=== PATIENT | male | born 1970 | race Caucasian/White ===

== ENCOUNTER 2017-02-11 18:51 | Day surgery (SDC) | payer OTHER ==
[~2017-02-11] VITALS: Ht 165.1 cm; Wt 96.2 kg
[~2017-02-11 18:51] MED LIST: DILAUDID2 M1 PO; ERYTHROMYCIN1 GM OPH; PERCOCET 5-3251 EACH PO; SIMVASTATIN20 M2 PO; TRICOR145 M1 PO; VASCEPA1 G1 PO
[2017-02-11 19:15] LABS: ABSOLUTE BASOPHIL COUNT 0 /CUMM (0.0-0.2); ABSOLUTE EOSINOPHIL COUNT 0.2 /CUMM (0.0-0.7); ABSOLUTE GRANULOCYTE CT 7.4 /CUMM (1.4-6.5); ABSOLUTE MONOCYTE COUNT 0.7 /CUMM (0.10-0.60); BASOPHIL % 0.2 % (0.0-2.0); EOSINOPHIL % 2.2 % (0-5); GRANULOCYTE % 65.4 % (42.2-75.2); HEMATOCRIT 43.6 % (42-52); MEAN CORPUSCULAR HGB 29.3 PG (27.0-31.0); MEAN CORPUSCULAR HGB CONC 33.3 G/DL (33.0-37.0); MEAN CORPUSCULAR VOLUME 87.9 FL (80.0-94.0); MEAN PLATELET VOLUME 9.7 FL (7.4-10.4); PLATELET COUNT 192 /CUMM (130-400); RBC DISTRIBUTION WIDTH 13.5 % (11.5-14.5); RED BLOOD CELL CT 4.96 /CUMM (4.70-6.10); WHITE BLOOD CELL COUNT 11.4 /CUMM (4.8-10.8)
--- NOTE | 2017-02-11 21:02 | ED GENERAL PEDIATRIC ---
History of Present Illness General Chief Complaint: Abdominal Pain/Flank Pain Stated Complaint: ABD PAIN Source: patient, old records Exam Limitations: no limitations Vital Signs & Intake/Output Vital Signs & Intake/Output Vital Signs Date Time Temp Pulse Resp B/P Pulse O2 O2 Flow FiO2 Ox Delivery Rate 02/11 2243 97.5 69 16 135/82 97 Room Air 02/11 1859 98.2 80 16 156/100 98 Room Air Room Air ED Intake and Output 02/12 0000 02/11 1200 Intake Total 1000 Output Total Balance 1000 Intake, IV 1000 Patient 212 lb Weight Allergies Coded Allergies: No Known Allergies (02/11/17) Reconcile Medications Fenofibrate Nanocrystallized (Tricor) 145 MG TABLET 1 TAB PO DAILY TRIGLYCERIDES (Reported) Icosapent Ethyl (Vascepa) 1 GM CAPSULE 2 CAP PO BID CHOLESTEROL (Reported) Oxycodone HCl/Acetaminophen (Percocet 5-325 MG Tablet) 5 MG-325 MG TABLET 1 TAB PO BID pain Simvastatin (Simvastatin*) 20 MG TABLET 1 TAB PO QPM HIGH CHOLESTROL Triage Note: PT TO TRIAGE FOR LUQ PAIN FOR 6 HOURS. DENIES FEVERS, BUT HAD CHILLS. DENIES NAUSEA. PT STATES PAINW WORSE AFTER EATING CHICKEN. Triage Nurses Notes Reviewed? yes HPI: Patient present with epigastric pain that radiates to his back that started earlier today. The pain is constant. The pain is 10 out of 10. No nausea or vomiting. No aggravating a Medicaid status. Similar symptoms in the past when he has had pancreatitis. 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 No Psychosocial History Who does the child live with? Spouse Services at Home: None Child's primary language? [place] Smoking Status (13 and up) Never Smoked ETOH Use: occasional use Illicit Drug Use: denies illicit drug use Family History Family History, If Any: FATHER (Hypercholesterolemia). BROTHER (Stroke in mid 40s). Hx Contributory? No (LUCIANO MAN,MECHELLE Pulido) Review of Systems Review of Systems Constitutional: Reports: no symptoms. EENTM: Reports: no symptoms. Respiratory: Reports: no symptoms. Cardiovascular: Reports: no symptoms. GI: Reports: see HPI, abdominal pain. Genitourinary: Reports: no symptoms. Musculoskeletal: Reports: no symptoms. Skin: Reports: no symptoms. Neurological/Psychological: Reports: no symptoms. Hematologic/Endocrine: Reports: no symptoms. Immunologic/Allergic: Reports: no symptoms. All Other Systems: Reviewed and Negative (LUCIANO MAN,MECHELLE Pulido) Physical Exam Physical Exam General Appearance: alert/attentive, moderate distress Head: atraumatic HEENT: PERRL Neck: normal inspection, non-tender, supple Respiratory: chest non-tender, lungs clear, normal breath sounds Cardiovascular: normal peripheral pulses, regular rate, rhythm Gastrointestinal: soft, tenderness (EPIGASTRIC), other (NO REBOUND OR GUARDING) Back: normal inspection, no CVA tenderness Extremities: no evidence of injury, normal range of motion, cap refill <2 sec Neurological/Psychiatric: alert, normal mood/affect, no motor deficits, no sensory deficits Skin: normal color, warm/dry Lymphatic: no adenopathy Core Measures Severe Sepsis Present: No Septic Shock Present: No (LUCIANO MAN,MECHELLE Pulido) Progress Differential Diagnosis: PANCREATITIS, CHOLECYSITITIS Plan of Care: Orders Procedure Date/time Status Place in observation 02/12 0132 Active Add-on Test (ER Only) 02/11 2351 Active LIPASE 02/11 1905 Complete TROPONIN LEVEL 02/11 1902 Complete COMPREHENSIVE METABOLIC PANEL 02/11 190 Complete CBC WITHOUT DIFFERENTIAL 02/11 190 Complete AMYLASE 02/11 190 Complete EKG 02/11 190 Active Laboratory Tests 02/11/17 1905: Anion Gap 8, Estimated GFR > 60, BUN/Creatinine Ratio 21.1, Glucose 85, Calcium 9.8, Total Bilirubin 0.5, AST 26, ALT 49, Alkaline Phosphatase 45, Troponin I < 0.01, Total Protein 7.6, Albumin 4.5, Globulin 3.1, Albumin/Globulin Ratio 1.5, Amylase 120 H, Lipase 1167 H, CBC w Diff NO MAN DIFF REQ, RBC 4.96, MCV 87.9, MCH 29.3, RDW 13.5, MPV 9.7, Gran % 65.4, Lymphocytes % 25.9, Monocytes % 6.3, Eosinophils % 2.2, Basophils % 0.2, Absolute Granulocytes 7.4 H, Absolute Lymphocytes 3.0, Absolute Monocytes 0.7 H, Absolute Eosinophils 0.2, Absolute Basophils 0, PUBS MCHC 33.3 Diagnostic Imaging: Viewed by Me: CT Scan. Discussed w/RAD: CT Scan. Radiology Impression: PATIENT: MECHELLE JOHNSON PRESENT AGE: 46 PATIENT ACCOUNT NO: [id number] : 68 LOCATION: [facility] ORDERING PHYSICIAN: MECHELLE WOLF MD SERVICE DATE: 02/11/17 EXAM TYPE: CAT - CT ABD & PELVIS W IV CONTRAST EXAMINATION: CT ABDOMEN AND PELVIS WITH CONTRAST CLINICAL INFORMATION: Pancreatitis. Cholecystitis. Epigastric abdominal pain. COMPARISON: CT scan of the abdomen and pelvis 01/19/2017. TECHNIQUE: Multidetector volumetric imaging was performed of the abdomen and pelvis before and after the IV administration of 95 mL of Optiray 320 intravenous contrast. Sagittal and coronal reformatted images were obtained on the technologist's workstation. DLP: 485.94 mGy-cm FINDINGS: LUNG BASES: There is minimal right basilar subsegmental atelectasis. No pleural or pericardial effusion. LIVER, GALLBLADDER, AND BILIARY TREE: The liver is normal in size, shape, and attenuation. A small ill-defined hypodense lesion is visualized within the right lobe of the liver adjacent to gallbladder fossa that remains unchanged when compared to the dynamic renal CT scan from 01/19/2017. The gallbladder is unremarkable with no evidence of radiopaque gallstones, gallbladder wall thickening, or obvious pericholecystic inflammatory changes. PANCREAS: Unremarkable. SPLEEN: Unremarkable. ADRENAL GLANDS: Unremarkable. KIDNEYS AND URETERS: The kidneys are normal in size, shape, and attenuation. No hydronephrosis, hydroureter, or calculi seen. No perinephric stranding. BLADDER: Unremarkable. GASTROINTESTINAL TRACT: The stomach and small bowel are normal. There are no pathologically enlarged mesenteric or retroperitoneal lymph nodes. No free intraperitoneal air or fluid. Scattered diverticula are visualized within the sigmoid colon. There is a appendicolith at the base of the cecum and the appendix is abnormally distended with a diameter measuring 1.0 cm. Subtle inflammatory changes are visualized within the adjacent mesenteric fat. ABDOMINAL WALL: There is a small fat-containing umbilical hernia. VASCULAR: The abdominal aorta and inferior vena cava are unremarkable. PELVIC VISCERA: Unremarkable. OSSEOUS STRUCTURES: There are no worrisome lytic or blastic osseous lesions. IMPRESSION: There are early changes of acute appendicitis. No evidence of perforation. DICTATED BY: LEIAS ARROYO MD DATE/TIME DICTATED: 02/11/172345 CASSANDRA DEVELOPER:SCOOTER DATE/TIME TRANSCRIBED:02/11/172345 CONFIDENTIAL, DO NOT COPY WITHOUT APPROPRIATE AUTHORIZATION. <Electronically signed in Other Vendor System> SIGNED BY: ELIAS ARROYO MD 02/12/17 0000 Initial ED EKG: NSR, no ST T wave changes Prior EKG: unchanged Hand-Off Endorsed To: VERA AMANDA MD Endorsed Time: 3 Pending: consult (SURGICAL) Comments: NO REFLIEF FROM IV MORPHINE. (MECHELLE WOLF MD) Departure Departure Disposition: STILL A PATIENT Condition: Stable Referrals: PEREZ MAN,RAFITA Duncan (PCP/Family) Departure Forms: Customer Survey General Discharge Information (MECHELLE WOLF MD) Departure Clinical Impression Primary Impression: Appendicitis Secondary Impressions: Pancreatitis, chronic Observation Note Spoke With: SILVA LAST MD Physician Advisor Notified: MECHELLE WOLF MD Place Patient In: Non-ED OBS Care Area Rationale for Observation: My rational for observation is as follows . pt with appendicitis on ct scan, now with rlq tenderness on exam. elevated lipase noted, but likely decreasing/stable from prior lipase of >31,000 (VERA AMANDA MD)
--- NOTE | 2017-02-12 | CT SCAN REPORT ---
EXAMINATION: CT ABDOMEN AND PELVIS WITH CONTRAST CLINICAL INFORMATION: Pancreatitis. Cholecystitis. Epigastric abdominal pain. COMPARISON: CT scan of the abdomen and pelvis 01/19/2017. TECHNIQUE: Multidetector volumetric imaging was performed of the abdomen and pelvis before and after the IV administration of 95 mL of Optiray 320 intravenous contrast. Sagittal and coronal reformatted images were obtained on the technologist's workstation. DLP: 485.94 mGy-cm FINDINGS: LUNG BASES: There is minimal right basilar subsegmental atelectasis. No pleural or pericardial effusion. LIVER, GALLBLADDER, AND BILIARY TREE: The liver is normal in size, shape, and attenuation. A small ill-defined hypodense lesion is visualized within the right lobe of the liver adjacent to gallbladder fossa that remains unchanged when compared to the dynamic renal CT scan from 01/19/2017. The gallbladder is unremarkable with no evidence of radiopaque gallstones, gallbladder wall thickening, or obvious pericholecystic inflammatory changes. PANCREAS: Unremarkable. SPLEEN: Unremarkable. ADRENAL GLANDS: Unremarkable. KIDNEYS AND URETERS: The kidneys are normal in size, shape, and attenuation. No hydronephrosis, hydroureter, or calculi seen. No perinephric stranding. BLADDER: Unremarkable. GASTROINTESTINAL TRACT: The stomach and small bowel are normal. There are no pathologically enlarged mesenteric or retroperitoneal lymph nodes. No free intraperitoneal air or fluid. Scattered diverticula are visualized within the sigmoid colon. There is a appendicolith at the base of the cecum and the appendix is abnormally distended with a diameter measuring 1.0 cm. Subtle inflammatory changes are visualized within the adjacent mesenteric fat. ABDOMINAL WALL: There is a small fat-containing umbilical hernia. VASCULAR: The abdominal aorta and inferior vena cava are unremarkable. PELVIC VISCERA: Unremarkable. OSSEOUS STRUCTURES: There are no worrisome lytic or blastic osseous lesions. IMPRESSION: There are early changes of acute appendicitis. No evidence of perforation.
--- NOTE | 2017-02-12 02:54 | History & Physical Pre-Op ---
BARBRA LANIER 02/12/17 0238: General Information and HPI MD Statement: I have seen and personally examined MECHELLE JOHNSON and documented this H&P. The patient is a 46 year old M who presented with a patient stated chief complaint of abdominal pain. Source of Information: patient, old records Exam Limitations: no limitations History of Present Illness: Patient is a 46-year-old male with past medical history significant recurrent pancreatitis due to severe hypertriglyceridemia. His most recent admission was about 3 minutes ago for this reason. He presented to the ED last night with complaints of acute onset of supraumbilical abdominal pain that started at about 12 PM, after eating baked chicken for lunch. Patient states that the pain became progressively worse throughout the day, which prompted his visit to the ED.. He eventually experienced some nausea and dizziness, along with one episode of emesis in the ED. He admits to being constipated recently, although there was a small BM prior to admission. Otherwise denies fever, chills, headache, dizziness, chest pain, shortness of breath, cough, palpitations, diarrhea, dysuria. CT scan performed in the ED reveals acute appendicitis. Allergies/Medications Allergies: Coded Allergies: No Known Allergies (02/11/17) Home Med list Fenofibrate Nanocrystallized (Tricor) 145 MG TABLET 1 TAB PO DAILY TRIGLYCERIDES (Reported) Icosapent Ethyl (Vascepa) 1 GM CAPSULE 2 CAP PO BID CHOLESTEROL (Reported) Oxycodone HCl/Acetaminophen (Percocet 5-325 MG Tablet) 5 MG-325 MG TABLET 1 TAB PO BID pain Simvastatin (Simvastatin*) 20 MG TABLET 1 TAB PO QPM HIGH CHOLESTROL Past History Medical History Neurological: NONE EENT: NONE Cardiovascular: hyperlipidemia, HIGH TRIGLYCERIDES Respiratory: NONE Gastrointestinal: pancreatitis Hepatic: NONE Renal: NONE Musculoskeletal: NONE Psychiatric: NONE Endocrine: NONE Blood Disorders: NONE Cancer(s): NONE 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 BROTHER (Stroke in mid 40s). Psychosocial History Who Do You Live With? spouse, child Services at Home None Primary Language: Swazi Smoking Status: Current Everyday Smoker ETOH Use: occasional use (quit recently) Functional Ability ADLs Independent: dressing, eating, toileting, bathing. Ambulation: independent IADLs Independent: shopping, housework, finances, food prep, telephone, transportation , medication admin. 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 Negative for fever, chills, headache, dizziness, chest pain, shortness of breath , cough, palpitations, diarrhea, dysuri Exam & Diagnostic Data Last 24 Hrs of Vital Signs/I&O Vital Signs Date Time Temp Pulse Resp B/P Pulse O2 O2 Flow FiO2 Ox Delivery Rate 02/11 2243 97.5 69 16 135/82 97 Room Air 02/11 1859 98.2 80 16 156/100 98 Room Air Room Air Intake & Output 02/12 0800 02/12 0000 02/11 1600 Intake Total 1000 Output Total Balance 1000 Intake, IV 1000 Patient 212 lb Weight Physical Exam: Gen.: Patient is awake and alert. No acute distress. Cardiac: Regular rate and rhythm. Pulmonary: Lungs are clear bilaterally. No wheezes, rales, or rhonchi are appreciated. Abdomen: Soft and mildly distended. There is some tenderness in the supraumbilical area, as well as focal tenderness in the right lower quadrant with some guarding. No rebound tenderness is appreciated. Negative psoas and negative obturator signs. Hypoactive bowel sounds are heard. No surgical scars are appreciated. There is a small umbilical hernia, which is tender, but seems to be reducible (exam limited due to pain.) Extremities: No significant edema or calf tenderness are appreciated. Last 24 Hrs of Labs/Vasiliy: Laboratory Tests 02/11/17 1905: Anion Gap 8, Estimated GFR > 60, BUN/Creatinine Ratio 21.1, Glucose 85, Calcium 9.8, Total Bilirubin 0.5, AST 26, ALT 49, Alkaline Phosphatase 45, Troponin I < 0.01, Total Protein 7.6, Albumin 4.5, Globulin 3.1, Albumin/Globulin Ratio 1.5, Amylase 120 H, Lipase 1167 H, CBC w Diff NO MAN DIFF REQ, RBC 4.96, MCV 87.9, MCH 29.3, RDW 13.5, MPV 9.7, Gran % 65.4, Lymphocytes % 25.9, Monocytes % 6.3, Eosinophils % 2.2, Basophils % 0.2, Absolute Granulocytes 7.4 H, Absolute Lymphocytes 3.0, Absolute Monocytes 0.7 H, Absolute Eosinophils 0.2, Absolute Basophils 0, PUBS MCHC 33.[address] Other Results CT scan of abdomen and pelvis revealed: There are early changes of acute appendicitis. No evidence of perforation. Appendix is dilated to 1 cm. Assessment/Plan Assessment/Plan: Patient is a 46-year-old male with a past medical history significant for recurrent pancreatitis due to severe triglyceridemia, who presents with abdominal pain due to early acute appendicitis. Although there is an elevated lipase, this is likely still trending down since his most recent bout of pancreatitis back in October when his lipase was over 31,000. Plan: -Patient will need to go to the OR for laparoscopic appendectomy. -Nothing by mouth, IV fluids. -IV Unasyn 3 g 1. -Pain control with IV Dilaudid as needed. -If patient is stable postoperatively, he can be discharged home per his request. -Dr. Last is aware and he and the patient both agree with the plan. As Ranked By This Provider Problem List: 1. Appendicitis SILVA LAST MD 02/12/17 0314: Attending MD Review Statement Attending Statement Attending MD Statement: examined this patient, discuss w/resident/PA/EDUCATION DEAN, agreed w/resident/PA/EDUCATION DEAN, reviewed images Attending Assessment/Plan: Relatively healthy 46-year-old male presents with progressive abdominal pain in keeping with acute appendicitis. He now has all right lower quadrant peritonitis. CT scan confirms the diagnosis of early acute appendicitis secondary to fecalith. Plan is to give him broad-spectrum antibiotics and prompt laparoscopic appendectomy. He is informed of the risks of the operation including bleeding infection and agrees to proceed.
[2017-02-12 03:33] LABS: PT 11.4 SEC (9.4-12.5); PTT 31 SEC (25-37)
[2017-02-12 04:08] VITALS: BP 130/68
--- NOTE | 2017-02-12 06:56 | Operative Report ---
Operative/Inv Procedure Report Surgery Date: 02/12/17 Name of Procedure: Laparoscopic appendectomy Pre-Operative Diagnosis: Acute appendicitis Post-Operative Diagnosis: Same Estimated Blood Loss: scant Surgeon/Delivery Driver Assistant: Rohit Mclaughlin M.D./Anastacio BANUELOS Anesthesia: general endotracheal tube Specimens: Appendix Operative/Procedure Note Note: After consent patient is brought to the operating room and laid supine. General anesthesia was obtained his abdomen was prepped and draped. Skin above the umbilicus was after local anesthesia a curvilinear incision made sharply. We dissected through subcutaneous tissues tissues bluntly and identified the fascia. It was grasped with Edmonson's and a fasciotomy created sharply. The peritoneum was entered sharply and a blunt Stewart port was placed. Pneumoperitoneum was achieved. 2, 5 mm ports were placed in the suprapubic region and left lower quadrant, after local anesthesia was instilled and under direct vision the camera. Patient placed in Trendelenburg and rotated towards the left. The abdomen was explored. The appendix was identified in the right lower quadrant. It was gangrenous throughout its course but not perforated. There was scant turbid peritoneal fluid. Appendix grasped in the mesentery to avoid injury to the wall. A window in the mesentery near the base was developed with a [place] dissector. The mesentery was divided with Endo MIKE Elkins load. The base was divided with a reload. Appendix placed in Endo Catch bag and cinched up. The right lower quadrant and pelvis were then irrigated with normal saline. Hemostasis was adequate. Ports then removed and appendix delivered and passed off the field. The fascia was closed 0 Vicryl suture. Skin incisions closed with 4-0 Vicryl. Steri-Strips and sterile dressing applied. Sponge and needle counts are correct CC: PEREZ MAN,RAFITA Duncan
== END 2017-02-12 ==
LOC: ERH 18:51 → STS 02-12 06:00 → ERH 02-12 08:50
PROVIDERS: Emergency Medicine
DX: K35.80 Unspecified acute appendicitis (principal); E78.4 Other hyperlipidemia; F17.200 Nicotine dependence, unspecified, uncomplicated
CPT/HCPCS: 74177; 88304; 93005; 93010; 96361; 96374; 96375; 96376; J0131; J1100; J2250; J2405; J3010

== ENCOUNTER 2018-04-21 04:32 | Inpatient (IN) | payer OTHER ==
[~2018-04-21] VITALS: Ht 162.6 cm; Wt 103.4 kg
--- NOTE | 2018-04-21 04:52 | ED GI/GU/ABDOMINAL COMPLAINT ---
History of Present Illness General Chief Complaint: Abdominal Pain/Flank Pain Stated Complaint: C/C ABD PAIN HX PANCREATITIS Source: patient Exam Limitations: no limitations Vital Signs & Intake/Output Vital Signs & Intake/Output Vital Signs Date Time Temp Pulse Resp B/P B/P Pulse O2 O2 Flow FiO2 Mean Ox Delivery Rate 04/21 0447 98.2 83 18 157/100 98 Room Air Allergies Coded Allergies: No Known Allergies (02/11/17) Reconcile Medications Fenofibrate Nanocrystallized (Tricor) 145 MG TABLET 1 TAB PO DAILY TRIGLYCERIDES (Reported) Icosapent Ethyl (Vascepa) 1 GM CAPSULE 2 CAP PO BID CHOLESTEROL (Reported) Oxycodone HCl/Acetaminophen (Percocet 5-325 MG Tablet) 5 MG-325 MG TABLET 1 TAB PO BID pain Simvastatin (Simvastatin*) 20 MG TABLET 1 TAB PO QPM HIGH CHOLESTROL Triage Nurses Notes Reviewed? yes Onset: Gradual Duration: hour(s):, waxing and waning Timing: recent history Quality/Severity: burning, cramping Location: epigastric Radiation: no radiation Activities at Onset: none Prior Abdominal Problems: similar symptoms Modifying Factors: Worsens With: palpation. Associated Symptoms: abdominal pain HPI: 47 YO GENTLEMAN H/O pancreatitis Presents with midepigastric abdominal pain that began yesterday at approximately 4 PM. He feels discomfort similar to his prior episodes of pancreatitis. He notes burning midepigastric tenderness occasional nausea, decreased oral intake. He has no fever chills diarrhea chest pain shortness of breath. Past History Travel History Traveled to [place] past 21 day No Medical History Any Pertinent Medical History? 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 BROTHER (Stroke in mid 40s). Hx Contributory? No Review of Systems Review of Systems Constitutional: Reports: no symptoms. EENTM: Reports: no symptoms. Respiratory: Reports: no symptoms. Cardiovascular: Reports: no symptoms. GI: Reports: no symptoms. Genitourinary: Reports: no symptoms. Musculoskeletal: Reports: no symptoms. Skin: Reports: no symptoms. Neurological/Psychological: Reports: no symptoms. Hematologic/Endocrine: Reports: no symptoms. Immunologic/Allergic: Reports: no symptoms. All Other Systems: Reviewed and Negative Physical Exam Physical Exam Gastrointestinal: MILD TO MODERATE MIDEPIGASTRIC TENDERNESS TO PALPATION. wITHOUT REBOUND OR GUARDING Comments: Review of Systems - except as otherwise noted in HPI d and Negative Physical Exam Physical Exam General Appearance: well developed/nourished, no apparent distress Head: atraumatic, normal appearance Eyes: Bilateral: normal appearance. Ears, Nose, Throat: normal pharynx, normal ENT inspection Neck: normal inspection, supple, full range of motion Respiratory: normal breath sounds, chest non-tender, no respiratory distress, quiet respiration, lungs clear Cardiovascular: regular rate/rhythm Gastrointestinal: Mild to mid epigastric tenderness to palpation. Without a Barbosa's sign, rebound or guarding. Back: normal inspection, normal range of motion Extremities: normal inspection, normal capillary refill, normal range of motion, no edema Neurologic/Psych: no motor/sensory deficits, awake, alert, oriented x 3 Skin: intact, normal color, warm/dry Core Measures ACS in differential dx? No Sepsis Present: No Sepsis Focused Exam Completed? No Progress Differential Diagnosis: colon cancer, cholecystitis, diverticulitis, gastritis, hepatitis Plan of Care: Orders Procedure Date/time Status Nothing by Mouth 04/21 B Active Saline Lock 04/21 651 Active Misc Message 04/21 651 Active ED Holding Orders 04/21 651 Active Admit to inpatient 04/21 0651 Active Vital Signs 04/21 0651 Active Code Status 04/21 0651 Active Add-on Test (ER Only) 04/21 0637 Active TRIGLYCERIDES 04/21 0540 Active ETHANOL 04/21 0500 Active TROPONIN LEVEL 04/21 0451 Active LIPASE 04/21 0451 Active HEPATIC FUNCTION PANEL 04/21 0451 Active CBC WITHOUT DIFFERENTIAL 04/21 0451 Complete BASIC METABOLIC PANEL 04/21 0451 Active AMYLASE 04/21 0451 Active EKG 04/21 0451 Active Current Medications Sig/Setph Start time Last Medication Dose Stop Time Status Admin Morphine Sulfate 4 MG ONCE ONE 04/21 700 UNVr (Morphine) 04/21 07 Sodium Chloride 1,000 ML BOLUS ONE 04/21 0700 UNVr (Normal Saline 0.9%) 04/21 0759 Laboratory Tests 04/21/18 0540: Anion Gap 8, Estimated GFR > 60, BUN/Creatinine Ratio 20.0, Glucose 96, Calcium 8.8, Total Bilirubin 0.4, Direct Bilirubin 0.2, AST 22, ALT 40, Alkaline Phosphatase 45, Troponin I < 0.01, Total Protein 6.4, Albumin 3.7, Triglycerides Pending, Amylase 453 H, Lipase 6858 H, CBC w Diff NO MAN DIFF REQ, RBC 4.52 L , MCV 87.9, MCH 30.2, MCHC 34.3, RDW 12.8, MPV 9.8, Gran % 66.9, Lymphocytes % 21.3, Monocytes % 9.1, Eosinophils % 2.4, Basophils % 0.3, Absolute Granulocytes 5.5, Absolute Lymphocytes 1.7, Absolute Monocytes 0.7 H, Absolute Eosinophils 0.2, Absolute Basophils 0, Serum Alcohol < 10.0 04/21/18 0500: Serum Alcohol Cancelled Diagnostic Imaging: Viewed by Me: Radiology Read, CT Scan. Discussed w/RAD: Radiology Read, CT Scan. Radiology Impression: PATIENT: MECHELLE JOHNSON PRESENT AGE: 47 PATIENT ACCOUNT NO: [id number] : 68 LOCATION: [facility] ORDERING PHYSICIAN: Chalo Mckinney MD SERVICE DATE: 04/21/18 EXAM TYPE: CAT - CT ABD & PELVIS W/O IV CONTRAS EXAMINATION: CT ABDOMEN AND PELVIS WITHOUT CONTRAST CLINICAL INFORMATION: Mid epigastric pain, history of pancreatitis COMPARISON: 02/11/2017 TECHNIQUE: Multidetector volumetric imaging was performed from the superior aspect of the liver through the pubic symphysis. Sagittal and coronal reformatted images were obtained on the technologist's workstation. DLP: 730.94 mGy-cm FINDINGS: LUNG BASES: The visualized lung bases are unremarkable. LIVER, GALLBLADDER, AND BILIARY TREE: The liver is normal in size, shape, and attenuation. No biliary ductal dilatation is present. The gallbladder is unremarkable with no evidence of radiopaque gallstones, gallbladder wall thickening, or obvious pericholecystic inflammatory changes. PANCREAS: There is mild stranding adjacent to the distal pancreas. No peripancreatic fluid collection. SPLEEN: Unremarkable. ADRENAL GLANDS: Unremarkable. KIDNEYS AND URETERS: The kidneys are normal in size, shape, and attenuation. No hydronephrosis, hydroureter, or calculi seen. No perinephric stranding. BLADDER: Unremarkable. GASTROINTESTINAL TRACT: No evidence of bowel obstruction or wall thickening. Patient is status post appendectomy. No free fluid or free air is seen. ABDOMINAL WALL: No significant hernia is appreciated. LYMPH NODES: Normal. VASCULAR: Unremarkable. PELVIC VISCERA: Unremarkable. OSSEOUS STRUCTURES: Diffuse idiopathic skeletal hyperostosis is noted in the lower thoracic spine. Endplate osteophytes are present in the lumbar spine most prominently at L3-L4. IMPRESSION: Mild stranding adjacent to the distal pancreas, consistent with pancreatitis. DICTATED BY: Celso Harmon MD DATE/TIME DICTATED:04/21/18600 PRODUCTION ASSEMBLER:SCOOTER DATE/TIME TRANSCRIBED:04/21/18600 CONFIDENTIAL, DO NOT COPY WITHOUT APPROPRIATE AUTHORIZATION. <Electronically signed in Other Vendor System> SIGNED BY: Celso Harmon MD 04/21/18 0611 Initial ED EKG: normal axis, normal intervals, normal p-waves, normal QRS complex, normal sinus rhythm Departure Departure Disposition: STILL A PATIENT Condition: Stable Clinical Impression Primary Impression: Abdominal pain Secondary Impressions: Pancreatitis Referrals: Tyler MAN,Guido Duncan (PCP/Family) Departure Forms: Customer Survey General Discharge Information Admission Note Spoke With: Bridgette MAN,Rafaela Goodwin Documentation of Exam: Documentation of any treatments & extenuating circumstances including Concerns Regarding Discharge (functional status, medication knowledge or non-compliance, living conditions, etc.) that warrant an admission rather than observation: Pt with pancreatitis, based on labs/ct scan/history and exam, merits bowel rest, parenteral pain meds, iv fluids.... likely etiology is lipids vs idiopathic vs etoh.
[2018-04-21 05:58] LABS: ABSOLUTE BASOPHIL COUNT 0 /CUMM (0.0-0.2); ABSOLUTE EOSINOPHIL COUNT 0.2 /CUMM (0.0-0.7); ABSOLUTE GRANULOCYTE CT 5.5 /CUMM (1.4-6.5); ABSOLUTE LYMPH COUNT 1.7 /CUMM (1.2-3.4); ABSOLUTE MONOCYTE COUNT 0.7 /CUMM (0.10-0.60); BASOPHIL % 0.3 % (0.0-2.0); EOSINOPHIL % 2.4 % (0-5); GRANULOCYTE % 66.9 % (42.2-75.2); HEMATOCRIT 39.7 % (42-52); MEAN CORPUSCULAR VOLUME 87.9 FL (80.0-94.0); MEAN PLATELET VOLUME 9.8 FL (7.4-10.4); PLATELET COUNT 155 /CUMM (130-400); RBC DISTRIBUTION WIDTH 12.8 % (11.5-14.5); RED BLOOD CELL CT 4.52 /CUMM (4.70-6.10); WHITE BLOOD CELL COUNT 8.2 /CUMM (4.8-10.8)
--- NOTE | 2018-04-21 06:11 | CT SCAN REPORT ---
EXAMINATION: CT ABDOMEN AND PELVIS WITHOUT CONTRAST CLINICAL INFORMATION: Mid epigastric pain, history of pancreatitis COMPARISON: 02/11/2017 TECHNIQUE: Multidetector volumetric imaging was performed from the superior aspect of the liver through the pubic symphysis. Sagittal and coronal reformatted images were obtained on the technologist's workstation. DLP: 730.94 mGy-cm FINDINGS: LUNG BASES: The visualized lung bases are unremarkable. LIVER, GALLBLADDER, AND BILIARY TREE: The liver is normal in size, shape, and attenuation. No biliary ductal dilatation is present. The gallbladder is unremarkable with no evidence of radiopaque gallstones, gallbladder wall thickening, or obvious pericholecystic inflammatory changes. PANCREAS: There is mild stranding adjacent to the distal pancreas. No peripancreatic fluid collection. SPLEEN: Unremarkable. ADRENAL GLANDS: Unremarkable. KIDNEYS AND URETERS: The kidneys are normal in size, shape, and attenuation. No hydronephrosis, hydroureter, or calculi seen. No perinephric stranding. BLADDER: Unremarkable. GASTROINTESTINAL TRACT: No evidence of bowel obstruction or wall thickening. Patient is status post appendectomy. No free fluid or free air is seen. ABDOMINAL WALL: No significant hernia is appreciated. LYMPH NODES: Normal. VASCULAR: Unremarkable. PELVIC VISCERA: Unremarkable. OSSEOUS STRUCTURES: Diffuse idiopathic skeletal hyperostosis is noted in the lower thoracic spine. Endplate osteophytes are present in the lumbar spine most prominently at L3-L4. IMPRESSION: Mild stranding adjacent to the distal pancreas, consistent with pancreatitis.
[2018-04-21 06:15] LABS: MEAN CORPUSCULAR HGB 30.2 PG (27.0-31.0)
[2018-04-21 06:16] LABS: MEAN CORPUSCULAR HGB CONC 34.3 G/DL (33.0-37.0)
[2018-04-21 08:42] VITALS: BP 130/90
--- NOTE | 2018-04-21 09:06 | History & Physical ---
Chaz Comer MD 04/21/18 0842: General Information and HPI History of Present Illness: 47 year old man with past medical history of recurrent pancreatitis, famililial hypertriglyceridema, and obesity seen for evaluation of epigastric pain. Patient reports being in his normal state of health when around 4PM the day prior to admission he developed some mild upper abdominal discomfort that felt like a "hunger pain". He ate a ham sandwich for lunch and yogurt with strawberries for breakfast. THe pain progressively worsening throughout the evening, eventually waking him from sleep for which he came to the [place] ED for concern on an episode of pancreatitis. Presently patient states his pain is a sharp 6/10 radiating straight through to his back. He reports adequate oral intake of food and water. He has not had any alcohol since thursday. He drinks on weekend nights averaging 6-8 beers. He is a current smoking smoking 1/2 - 1 ppd. He is compliant with his medications and denies any new meds. Review of Systems He otherwise denies any headache, fever, chills, chest pain, palpitations, heartburn, shortness of breath, cough, nausea, vomiting, diarrhea, constipation, or urinary symptoms. Allergies/Medications Allergies: Coded Allergies: No Known Allergies (02/11/17) Home Med list Fenofibrate Nanocrystallized (Tricor) 145 MG TABLET 1 TAB PO DAILY TRIGLYCERIDES (Reported) Icosapent Ethyl (Vascepa) 1 GM CAPSULE 2 CAP PO BID CHOLESTEROL (Reported) Past History Travel History Traveled to [place] past 21 day No Medical History Neurological: NONE EENT: NONE Cardiovascular: hyperlipidemia, HIGH TRIGLYCERIDES Respiratory: NONE Gastrointestinal: pancreatitis Hepatic: NONE Renal: NONE Musculoskeletal: NONE Psychiatric: NONE Endocrine: HYPERTRIGLYCERIDEMIA Blood Disorders: NONE Cancer(s): NONE PHARMACY MESSENGER/Reproductive: NONE History of MRSA: No History of VRE: No History of CDIFF: No Surgical History Surgical History: appendectomy, HANDS CARPAL TUNNEL trigger finger Past Family/Social History Family History Relations & Conditions if any FATHER (Hypercholesterolemia). BROTHER (Stroke in mid 40s). Psychosocial History Who Do You Live With? spouse, child Services at Home: None Primary Language: Bengali Smoking Status: Current Everyday Smoker ETOH Use: occasional use Illicit Drug Use: denies illicit drug use Functional Ability ADLs Independent: dressing, eating, toileting, bathing. Ambulation: independent IADLs Independent: shopping, housework, finances, food prep, telephone, transportation , medication admin. Review of Systems Review of Systems Constitutional: Reports: see HPI. Exam & Diagnostic Data Last 24 Hrs of Vital Signs/I&O Vital Signs Date Time Temp Pulse Resp B/P B/P Pulse O2 O2 Flow FiO2 Mean Ox Delivery Rate 04/21 0842 98.7 66 18 130/90 98 04/21 0729 78 15 137/83 98 Room Air Room Air 04/21 0447 98.2 83 18 157/100 98 Room Air Intake & Output 04/21 1600 04/21 0800 04/21 0000 Intake Total 0 Output Total Balance 0 Intake, Oral 0 Patient 103.419 kg Weight Physical Exam General Appearance Alert, Oriented X3, Cooperative, No Acute Distress Skin No Rashes, No Breakdown, No Significant Lesion Skin Temp/Moisture Exam: Warm/Dry Sepsis Skin Exam (color): Normal for Ethnicity HEENT Atraumatic, EOMI, Mucous Membr. moist/pink Neck Supple Cardiovascular Regular Rate, Normal S1, Normal S2 Lungs Clear to Auscultation, Normal Air Movement Abdomen Normal Bowel Sounds, Soft, No Hepatospenomegaly, No Masses, Mild epigastric tenderness Neurological Normal Gait, Normal Speech, Normal Tone, Sensation Intact, Cranial Nerves 3-12 NL Extremities No Edema, Normal Pulses Vascular Normal Pulses, Pulses Symmetrical Last 24 Hrs of Labs/Vasiliy: Laboratory Tests 04/21/18 0735: Urine Color YEL, Urine Clarity CLEAR, Urine pH 6.0, Ur Specific [place] 1.020, Urine Protein NEG, Urine Ketones NEG, Urine Nitrite NEG, Urine Bilirubin NEG, Urine Urobilinogen 0.2, Ur Leukocyte Esterase NEG, Ur Microscopic EXAM NOT REQUIRED, Urine Hemoglobin NEG, Urine Glucose NEG 04/21/18 0540: Anion Gap 8, Estimated GFR > 60, BUN/Creatinine Ratio 20.0, Glucose 96, Calcium 8.8, Total Bilirubin 0.4, Direct Bilirubin 0.2, AST 22, ALT 40, Alkaline Phosphatase 45, Troponin I < 0.01, Total Protein 6.4, Albumin 3.7, Triglycerides 2045 H, Amylase 453 H, Lipase 6858 H, CBC w Diff NO MAN DIFF REQ, RBC 4.52 L , MCV 87.9, MCH 30.2, MCHC 34.3, RDW 12.8, MPV 9.8, Gran % 66.9, Lymphocytes % 21.3, Monocytes % 9.1, Eosinophils % 2.4, Basophils % 0.3, Absolute Granulocytes 5.5, Absolute Lymphocytes 1.7, Absolute Monocytes 0.7 H, Absolute Eosinophils 0.2, Absolute Basophils 0, Serum Alcohol < 10.0 04/21/18 0500: Serum Alcohol Cancelled Assessment/Plan Assessment: 47-year-old man with multiple medical problems significant for recurrent pancreatitis and familial hypertriglyceridemia seen for evaluation of epigastric abdominal discomfort. Patient reports 6/10 mid-epigastric sharp abdominal pain radiating straight through to his back. Vital signs are significant only for an elevated blood pressure of 157/100. Physical exam demonstrates a soft, mildly tender epigastrum without guarding or rigidity. Labs demonstrate a lipiase of 6858, amylase 454, and triglyceride 2045; EtOH CBC and Chemistry unremarkable. CXR was not obtained. CT abdomen/pelvis demonstrates findings consistent with pancreatitis. Clinicallly patient appears to have acute uncomplicated recurrent pancreatitis most likely secondary to his markedly elevated triglycerides. He is reported followed by electric spot welder / "cholesterol expert" (per patient) Dr. Mercado and is compliant with his fenofibrate and Vascepa. Patient is to be kept nothing by mouth with diet advanced as tolerated and admitted to general medicine. He will be given addressive intravenous fluids and dilaudid / zofran for pain / nausea relief. Problem List -Acute pancreatitis, likely due to hypertriglyceridemia -Familial hyperglyceridemia, on Fenofibrate / Vascepa -Obesity Plan -Admit to general medicine -LR @ 150 mL/hr -Continue home meds: Fenofibrate, Vascepa -Dilaudid PRN for pain control -Zofran PRN for nausea -Endocrinology consult for evaluation of hypertriglyceridemia -Obtain chest x-ray -NPO -DVT PPx with subcutaneous heparin -FULL CODE As Ranked By This Provider Problem List: 1. Pancreatitis Core Measures/Misc (08/02) Acute Coronary Syndrome ACS Diagnosis: No Congestive Heart Failure Congestive Heart Failure Diagnosis No Cerebrovascular Accident CVA/TIA Diagnosis: No VTE (View Protocol) VTE Risk Factors Age>40 No Mechanical VTE Prophylaxis d/t N/A MechProphylax Ordered No VTE Pharm Prophylaxis d/t NA PharmProphylax ordered Sepsis (View protocol) Sepsis Present: No If YES complete Sepsis Event Note If YES complete Sepsis Event Note Enzo MAN,Kiersten 04/21/18 1217: Core Measures/Misc (08/02) Sepsis (View protocol) If YES complete Sepsis Event Note If YES complete Sepsis Event Note Attending MD Review Statement Attending Statement Attending MD Statement: examined this patient, discuss w/resident/PA/PRE CERTIFICATION SPECIALIST, agreed w/resident/PA/PRE CERTIFICATION SPECIALIST, reviewed EMR data (avail), discussed with nursing, discussed with case mgmt, reviewed images, amended to note Attending Assessment/Plan: 47-year-old male with past medical history significant for recurrent pancreatitis, hypertriglyceridemia, obesity who is presenting with epigastric pain. Pain started last evening. Gradually got worse over the course of the night. Patient has had similar episodes in the past. He does have history of hypertriglyceridemia and he has been taking fenofibrate as well as Vascepa. He does admit to not very compliant with his low-fat low-carb diet. He did eat fast food and he has been taking yolks in his scrambled eggs. Yesterday he ate ham sandwich with some mayonnaise. He described the pain as sharp, severe intensity prior to coming into the hospital and it was going into his back. He denies any nausea vomiting. He admits to having appetite. Vital Signs Date Time Temp Pulse Resp B/P B/P Pulse O2 O2 Flow FiO2 Mean Ox Delivery Rate 04/21 0842 98.7 66 18 130/90 98 04/21 0729 78 15 137/83 98 Room Air Room Air 04/21 0447 98.2 83 18 157/100 98 Room Air on exam; aox3, nad. cv; s1,s2, rrr resp; clear abd; soft, tender in epigastrium, bs+ ext; no edema Laboratory Tests 04/21 04/21 0735 0540 Chemistry Sodium (137 - 145 mmol/L) 139 Potassium (3.5 - 5.1 mmol/L) 4.2 Chloride (98 - 107 mmol/L) 106 Carbon Dioxide (22 - 30 mmol/L) 25 Anion Gap (5 - 16) 8 BUN (9 - 20 mg/dL) 16 Creatinine (0.7 - 1.2 mg/dL) 0.8 Estimated GFR (>60 ml/min) > 60 BUN/Creatinine Ratio (7 - 25 %) 20.0 Glucose (65 - 99 mg/dL) 96 Calcium (8.4 - 10.2 mg/dL) 8.8 Total Bilirubin (0.2 - 1.3 mg/dL) 0.4 Direct Bilirubin (< 0.4 mg/dL) 0.2 AST (17 - 59 U/L) 22 ALT (21 - 72 U/L) 40 Alkaline Phosphatase (< 127 U/L) 45 Troponin I (<0.11 ng/ml) < 0.01 Total Protein (6.3 - 8.2 g/dL) 6.4 Albumin (3.5 - 5.0 g/dL) 3.7 Triglycerides (<150 mg/dL) 2045 H Amylase (30 - 110 U/L) 453 H Lipase (23 - 300 U/L) 6858 H Hematology CBC w Diff NO MAN DIFF REQ WBC (4.8 - 10.8 /CUMM) 8.2 RBC (4.70 - 6.10 /CUMM) 4.52 L Hgb (14.0 - 18.0 G/DL) 13.3 L Hct (42 - 52 %) 39.7 L MCV (80.0 - 94.0 FL) 87.9 MCH (27.0 - 31.0 PG) 30.2 MCHC (33.0 - 37.0 G/DL) 34.3 RDW (11.5 - 14.5 %) 12.8 Plt Count (130 - 400 /CUMM) 155 MPV (7.4 - 10.4 FL) 9.8 Gran % (42.2 - 75.2 %) 66.9 Lymphocytes % (20.5 - 51.1 %) 21.3 Monocytes % (1.7 - 9.3 %) 9.1 Eosinophils % (0 - 5 %) 2.4 Basophils % (0.0 - 2.0 %) 0.3 Absolute Granulocytes (1.4 - 6.5 /CUMM) 5.5 Absolute Lymphocytes (1.2 - 3.4 /CUMM) 1.7 Absolute Monocytes (0.10 - 0.60 /CUMM) 0.7 H Absolute Eosinophils (0.0 - 0.7 /CUMM) 0.2 Absolute Basophils (0.0 - 0.2 /CUMM) 0 Toxicology Serum Alcohol (<10 MG/DL) < 10.0 Urines Urine Color (YEL,AMB,STR) YEL Urine Clarity (CLEAR) CLEAR Urine pH (5.0 - 8.0) 6.0 Ur Specific [place] (1.001 - 1.035) 1.020 Urine Protein (NEG,<30 MG/DL) NEG Urine Ketones (NEG) NEG Urine Nitrite (NEG) NEG Urine Bilirubin (NEG) NEG Urine Urobilinogen (0.1 - 1.0 EU/dl) 0.2 Ur Leukocyte Esterase (NEG) NEG Ur Microscopic EXAM NOT REQUIRED Urine Hemoglobin (NEG) NEG Urine Glucose (N MG/DL) NEG 04/21 0500 Toxicology Serum Alcohol Cancelled CT abd/pelvis: IMPRESSION: Mild stranding adjacent to the distal pancreas, consistent with pancreatitis. A/P; 47-year-old male with past medical history significant for recurrent pancreatitis, hypertriglyceridemia, obesity admitted with epigastric pain secondary to acute pancreatitis. Patient admitted to medicine floor. He will be kept nothing by mouth. He will be hydrated with IV fluids. Symptomatically treatment for nausea vomiting with antiemetics and analgesics. He does have high triglyceride levels. He will be continued on his home medications. We'll also obtain endocrinology consult. Pharmacologic DVT px. Full code.
[2018-04-21 14:52] VITALS: BP 136/80
--- NOTE | 2018-04-21 16:09 | RADIOLOGY REPORT ---
EXAMINATION: XR PORTABLE CHEST CLINICAL INFORMATION: Acute pancreatitis. Assess for pleural effusions. COMPARISON: CT scan of the abdomen and pelvis 04/21/2018. Chest x-ray 09/18/2016. TECHNIQUE: Portable 85 degrees semierect frontal view of the chest was obtained. FINDINGS: The lung hamilton are well expanded and appear clear bilaterally. The cardiac silhouette is normal. There are no pleural effusions or pneumothorax. The central pulmonary vasculature is normal. The hilar regions appear normal. There are no acute osseous findings. IMPRESSION: 1. There are no acute cardiopulmonary findings.
--- NOTE | 2018-04-21 18:24 | Cons- Endocrinology ---
General Information and HPI Consulting Request Date of Consult: 04/21/18 Requested By: medical team Reason for Consult: severe hypertriglyceridemia Source of Information: patient, old records Exam Limitations: no limitations History of Present Illness: This 47-year-old male has a known history of severe hypertriglyceridemia. He has had multiple bouts of pancreatitis. Unfortunately the patient drinks alcohol. He states that he could drink a sixpack of beer in 1 day on the weekend. He denies drinking during the week. The patient developed abdominal pain yesterday could not sleep last night. Eventually he came to the emergency room. His lipase is elevated at 6858. CT scan of the abdomen reveals mild stranding adjacent to the distal pancreas. No pancreatic fluid collection is seen. Allergies/Medications Allergies: Coded Allergies: niacin (Intermediate, FLUSHING 04/22/18) Home Med List: Atorvastatin Calcium 20 MG TABLET 1 TAB PO DAILY High Cholesterol Fenofibrate Nanocrystallized (Tricor) 145 MG TABLET 1 TAB PO DAILY TRIGLYCERIDES Icosapent Ethyl (Vascepa) 1 GM CAPSULE 2 CAP PO BID CHOLESTEROL (Reported) Current Medications: Current Medications Sig/Steph Start time Last Medication Dose Route Stop Time Status Admin Acetaminophen 0 .STK-MED ONE 04/21 516 DC IV Acetaminophen 1,000 MG ONCE ONE 04/21 515 DC 04/21 N/A 1 UNIT IV 04/21 0529 0526 Famotidine 0 .STK-MED ONE 04/21 516 DC IV Famotidine 20 MG ONCE ONE 04/21 0515 DC 04/21 IV 04/21 0516 0526 Fenofibrate 145 MG DAILY 04/21 09 AC 04/21 PO 0944 Fish Oil 2,100 MG BID 04/21 09 AC 04/21 PO 1039 Heparin Sodium 5,000 UNIT Q8 04/21 1400 AC 04/21 (Porcine) SC 1451 Hydromorphone HCl 0.5 MG Q4P PRN 04/21 0845 AC 04/21 IV 1451 Ketorolac 0 .STK-MED ONE 04/21 0535 DC Tromethamine .ROUTE Ketorolac 30 MG ONCE ONE 04/21 0515 DC 04/21 Tromethamine IV 04/21 0516 0531 Lactated Ringer's 1,000 ML Q6H 04/21 0900 AC 04/21 IV 04/22 0259 1559 Morphine Sulfate 0 .STK-MED ONE 04/21 734 DC .ROUTE Morphine Sulfate 4 MG ONCE ONE 04/21 07 DC 04/21 IV 04/21 0701 0734 Ondansetron HCl 4 MG Q8P PRN 04/21 0845 AC IV Patient Medication 1 ED ONE ONE 04/21 1100 DC Teaching ED 04/21 1101 Sodium Chloride 1,000 ML BOLUS ONE 04/21 0700 DC IV 04/21 0759 Sodium Chloride 1,000 ML BOLUS ONE 04/21 0515 DC 04/21 IV 04/21 0614 0516 Past History Travel History Traveled to [place] past 21 day No Medical History Blood Transfusion Hx: No Neurological: NONE EENT: NONE Cardiovascular: hyperlipidemia, HIGH TRIGLYCERIDES Respiratory: NONE Gastrointestinal: pancreatitis Hepatic: NONE Renal: NONE Musculoskeletal: NONE Psychiatric: NONE Endocrine: HYPERTRIGLYCERIDEMIA Blood Disorders: NONE Cancer(s): NONE 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 BROTHER (Stroke in mid 40s). Psychosocial History Where Do You Live? Home Who Do You Live With? spouse, child Services at Home: None Primary Language: Cuban Smoking Status: Current Everyday Smoker ETOH Use: occasional use Illicit Drug Use: denies illicit drug use Functional Ability ADLs Independent: dressing, eating, toileting, bathing. Ambulation: independent IADLs Independent: shopping, housework, finances, food prep, telephone, transportation , medication admin. Exam & Diagnostic Data Last 24 Hrs of Vital Signs/I&O Vital Signs Date Time Temp Pulse Resp B/P B/P Pulse O2 O2 Flow FiO2 Mean Ox Delivery Rate 04/21 1452 97.8 68 18 136/80 99 Room Air 04/21 0842 98.7 66 18 130/90 98 04/21 0729 78 15 137/83 98 Room Air Room Air 04/21 0447 98.2 83 18 157/100 98 Room Air Intake & Output 04/21 1600 04/21 0800 04/21 0000 Intake Total 950 0 Output Total Balance 950 0 Intake, IV 900 Intake, Oral 50 0 Number 0 Bowel Movements Patient 228 lb 228 lb Weight Weight Reported by Patient Measurement Method Vital Signs Date Time Temp Pulse Resp B/P B/P Pulse O2 O2 Flow FiO2 Mean Ox Delivery Rate 04/21 1452 97.8 68 18 136/80 99 Room Air 04/21 0842 98.7 66 18 130/90 98 04/21 0729 78 15 137/83 98 Room Air Room Air 04/21 0447 98.2 83 18 157/100 98 Room Air Intake & Output 04/21 1600 04/21 0800 04/21 0000 Intake Total 950 0 Output Total Balance 950 0 Intake, IV 900 Intake, Oral 50 0 Number 0 Bowel Movements Patient 228 lb 228 lb Weight Weight Reported by Patient Measurement Method Physical Exam General Appearance: alert, awake, comfortable Head: normal appearance Eyes: Bilateral: normal appearance. Neck: normal inspection Respiratory: normal breath sounds Cardiovascular: regular rate/rhythm Gastrointestinal: normal bowel sounds, soft, tenderness (epigastrium) Extremities: normal inspection Labs/Vasiliy Results: Laboratory Tests 04/21 04/21 0735 0540 Chemistry Sodium (137 - 145 mmol/L) 139 Potassium (3.5 - 5.1 mmol/L) 4.2 Chloride (98 - 107 mmol/L) 106 Carbon Dioxide (22 - 30 mmol/L) 25 Anion Gap (5 - 16) 8 BUN (9 - 20 mg/dL) 16 Creatinine (0.7 - 1.2 mg/dL) 0.8 Estimated GFR (>60 ml/min) > 60 BUN/Creatinine Ratio (7 - 25 %) 20.0 Glucose (65 - 99 mg/dL) 96 Calcium (8.4 - 10.2 mg/dL) 8.8 Total Bilirubin (0.2 - 1.3 mg/dL) 0.4 Direct Bilirubin (< 0.4 mg/dL) 0.2 AST (17 - 59 U/L) 22 ALT (21 - 72 U/L) 40 Alkaline Phosphatase (< 127 U/L) 45 Troponin I (<0.11 ng/ml) < 0.01 Total Protein (6.3 - 8.2 g/dL) 6.4 Albumin (3.5 - 5.0 g/dL) 3.7 Triglycerides (<150 mg/dL) 2045 H Amylase (30 - 110 U/L) 453 H Lipase (23 - 300 U/L) 6858 H Hematology CBC w Diff NO MAN DIFF REQ WBC (4.8 - 10.8 /CUMM) 8.2 RBC (4.70 - 6.10 /CUMM) 4.52 L Hgb (14.0 - 18.0 G/DL) 13.3 L Hct (42 - 52 %) 39.7 L MCV (80.0 - 94.0 FL) 87.9 MCH (27.0 - 31.0 PG) 30.2 MCHC (33.0 - 37.0 G/DL) 34.3 RDW (11.5 - 14.5 %) 12.8 Plt Count (130 - 400 /CUMM) 155 MPV (7.4 - 10.4 FL) 9.8 Gran % (42.2 - 75.2 %) 66.9 Lymphocytes % (20.5 - 51.1 %) 21.3 Monocytes % (1.7 - 9.3 %) 9.1 Eosinophils % (0 - 5 %) 2.4 Basophils % (0.0 - 2.0 %) 0.3 Absolute Granulocytes (1.4 - 6.5 /CUMM) 5.5 Absolute Lymphocytes (1.2 - 3.4 /CUMM) 1.7 Absolute Monocytes (0.10 - 0.60 /CUMM) 0.7 H Absolute Eosinophils (0.0 - 0.7 /CUMM) 0.2 Absolute Basophils (0.0 - 0.2 /CUMM) 0 Toxicology Serum Alcohol (<10 MG/DL) < 10.0 Urines Urine Color (YEL,AMB,STR) YEL Urine Clarity (CLEAR) CLEAR Urine pH (5.0 - 8.0) 6.0 Ur Specific [place] (1.001 - 1.035) 1.020 Urine Protein (NEG,<30 MG/DL) NEG Urine Ketones (NEG) NEG Urine Nitrite (NEG) NEG Urine Bilirubin (NEG) NEG Urine Urobilinogen (0.1 - 1.0 EU/dl) 0.2 Ur Leukocyte Esterase (NEG) NEG Ur Microscopic EXAM NOT REQUIRED Urine Hemoglobin (NEG) NEG Urine Glucose (N MG/DL) NEG 04/21 0500 Toxicology Serum Alcohol Cancelled Assessment/Plan Assessment/Plan This patient has severe hypertriglyceridemia and has had several bouts of pancreatitis related to high triglycerides. Unfortunately he also drinks alcohol which aggravates his triglyceride problem. The patient is presently n.p.o. and his triglycerides will fall gradually over the next 24-48 hours. We should recheck his lipid profile along with a fasting blood sugar and fasting insulin level in the morning. With regard to the long-term treatment of hypertriglyceridemia the patient needs to be on a fibrate, a statin such as simvastatin, and can stay on the Vascepa. . In addition niacin (Niaspan) can be used to lower triglycerides. The patient needs to give up drinking alcohol completely. His diet needs to be a low-fat low-cholesterol and no alcohol. There is a new drug that may be released later this year that will be approved for severe hyper triglyceridemia and chylomicronemia syndrome. This drug works by targeting a protein called apolipoprotein CIII. This protein is known to slow down the breakdown of triglycerides and the medication speeds up the breakdown of triglycerides. Consult Acknowledgment - Thank you for your consult request.
[2018-04-21 21:39] VITALS: BP 110/64
[2018-04-22 06:41] VITALS: BP 110/64
--- NOTE | 2018-04-22 07:14 | PN- Housestaff ---
Amadou MAN,[facility] 04/22/18 0714: Subjective Follow-up For: Acute Pancreatitis Subjective: Patient seen and examined at bedside. States feeling better and that his abdominal pain has improved. He does experience some epigastric discomfort with deep inspiratory breaths. Inquires if he can eat now. No other complaints. Review of Systems Constitutional: Reports: no symptoms. Objective Last 24 Hrs of Vital Signs/I&O Vital Signs Date Time Temp Pulse Resp B/P B/P Pulse O2 O2 Flow FiO2 Mean Ox Delivery Rate 04/22 0641 98.5 63 20 110/64 93 Room Air 04/21 2139 98.3 68 18 110/64 97 Room Air 04/21 1452 97.8 68 18 136/80 99 Room Air Intake & Output 04/22 1600 04/22 0800 04/22 0000 Intake Total 1200 600 Output Total 800 Balance 400 600 Intake, IV 1200 600 Intake, Oral 0 0 Output, Urine 800 Physical Exam General Appearance: Alert, Oriented X3, Cooperative, Mild Distress Skin: No Rashes, No Breakdown Skin Temp/Moisture Exam: Warm/Dry Sepsis Skin Exam (color): Normal for Ethnicity HEENT: Atraumatic Cardiovascular: Normal S1, Normal S2, No Murmurs Lungs: Clear to Auscultation, Normal Air Movement Abdomen: Soft, No Tenderness Neurological: Normal Speech Extremities: No Edema Last 24 Hrs of Lab/Vasiliy Results Last 24 Hrs of Labs/Mics: Laboratory Tests 04/22/18 0706: Anion Gap 8, Estimated GFR > 60, BUN/Creatinine Ratio 13.0, Glucose 70, Insulin Level 3.6, Magnesium 1.8, Triglycerides 714 H, Cholesterol 240 H, LDL Cholesterol Direct 34.27, LDL Cholesterol, Calc ND, HDL Cholesterol 24 L, Cholesterol/HDL Ratio 10 H, CBC w Diff NO MAN DIFF REQ, RBC 4.07 L, MCV 89.1, MCH 30.8, MCHC 34.5, RDW 13.2, MPV 10.3, Gran % 55.5, Lymphocytes % 31.9, Monocytes % 9.5 H, Eosinophils % 2.8, Basophils % 0.3, Absolute Granulocytes 3.4, Absolute Lymphocytes 1.9, Absolute Monocytes 0.6, Absolute Eosinophils 0.2, Absolute Basophils 0 Assessment/Plan Assessment: 47 year old man with past medical history of recurrent pancreatitis, famililial hypertriglyceridema, and obesity seen for evaluation of epigastric pain. Assessment: 1. Acute pancreatitis 2. History of Familial hyperglyceridemia 3. Obesity Plan: * He received 3L of LR since admission. Will hydrate him with another 1L @100ml/ hr. * His tryglycerides are elevated but have trended down today * Per endo recs, will start the patient on niacin and statin. * He can be started on a clear liquid diet and advanced as tolerated * Counselled extensively on alcohol abstinence to reduce risk of future episodes. This is his 4th episode. * Nutrition consult * He would require a low fat and low cholesterol diet. * Pain control with IV morphine and oxycodone as needed. * Diet: Clear Liquid * DVT Prophylaxis: SC Lovenox * Code: Full Code Problem List: 1. Pancreatitis, acute Pain Ratin Pain Location: none Pain Goal: Remain pain free Pain Plan: none Tomorrow's Labs & Rationales: CBC, triglycerides Enzo MAN,Kiersten 04/22/18 1115: Attending MD Review Statement Attending Statement Attending MD Statement: examined this patient, discuss w/resident/PA/PYROTECHNIST, agreed w/resident/PA/PYROTECHNIST, discussed with family, reviewed EMR data (avail), discussed with nursing, discussed with case mgmt, reviewed images, amended to note Attending Assessment/Plan: Patient seen and examined, overall feeling slightly better. Abdominal pain has improved. Patient has been started on clear liquid diet. Vital Signs Date Time Temp Pulse Resp B/P B/P Pulse O2 O2 Flow FiO2 Mean Ox Delivery Rate 04/22 0641 98.5 63 20 110/64 93 Room Air 04/21 2139 98.3 68 18 110/64 97 Room Air 04/21 1452 97.8 68 18 136/80 99 Room Air on exam; aox3, nad. cv; s1, s2, rrr resp; clear abd: soft, nt, bs+ ext; no edema Laboratory Tests 04/22 0706 Chemistry Sodium (137 - 145 mmol/L) 141 Potassium (3.5 - 5.1 mmol/L) 4.4 Chloride (98 - 107 mmol/L) 103 Carbon Dioxide (22 - 30 mmol/L) 30 Anion Gap (5 - 16) 8 BUN (9 - 20 mg/dL) 13 Creatinine (0.7 - 1.2 mg/dL) 1.0 Estimated GFR (>60 ml/min) > 60 BUN/Creatinine Ratio (7 - 25 %) 13.0 Glucose (65 - 99 mg/dL) 70 Insulin Level (3.0 - 25.0 mIU/mL) 3.6 Magnesium (1.6 - 2.3 mg/dL) 1.8 Triglycerides (<150 mg/dL) 714 H Cholesterol (< 200 MG/DL) 240 H LDL Cholesterol Direct (<100 mg/dL) 34.27 LDL Cholesterol, Calc (65 - 129 MG/DL) ND HDL Cholesterol (40 - 60 mg/dL) 24 L Cholesterol/HDL Ratio (0.00 - 4.88 %) 10 H Hematology CBC w Diff NO MAN DIFF REQ WBC (4.8 - 10.8 /CUMM) 6.1 RBC (4.70 - 6.10 /CUMM) 4.07 L Hgb (14.0 - 18.0 G/DL) 12.5 L Hct (42 - 52 %) 36.3 L MCV (80.0 - 94.0 FL) 89.1 MCH (27.0 - 31.0 PG) 30.8 MCHC (33.0 - 37.0 G/DL) 34.5 RDW (11.5 - 14.5 %) 13.2 Plt Count (130 - 400 /CUMM) 145 MPV (7.4 - 10.4 FL) 10.3 Gran % (42.2 - 75.2 %) 55.5 Lymphocytes % (20.5 - 51.1 %) 31.9 Monocytes % (1.7 - 9.3 %) 9.5 H Eosinophils % (0 - 5 %) 2.8 Basophils % (0.0 - 2.0 %) 0.3 Absolute Granulocytes (1.4 - 6.5 /CUMM) 3.4 Absolute Lymphocytes (1.2 - 3.4 /CUMM) 1.9 Absolute Monocytes (0.10 - 0.60 /CUMM) 0.6 Absolute Eosinophils (0.0 - 0.7 /CUMM) 0.2 Absolute Basophils (0.0 - 0.2 /CUMM) 0 A/P; 47-year-old male with past medical history significant for recurrent pancreatitis, hypertriglyceridemia, obesity admitted with epigastric pain secondary to acute pancreatitis in the setting of Hypertriglyceredemia. Appreciate input from endocrinology. Patient was started on statin and niacin. His triglyceride levels have come down since yesterday as patient was nothing by mouth. Patient will be started on clear liquid diet today. We counseled him for low-carb low-fat diet as well as stopping his alcohol intake. Will get a lotteries agent consult. Will advance his diet gradually to full liquid and then to low-fat low-carb solid diet if he is able to tolerate in the next 24 hours. Continue the rest of the medications. DVt px; Lovenox.
--- NOTE | 2018-04-22 07:15 | Patient Discharge Instructions ---
Discharge Instructions General Discharge Information You were seen/treated for: Pancreatitis Special Instructions: Please follow up with your PCP within one week of discharge. Please refrain from smoking and drinking alcohol. Diet Continue normal diet: Yes Recommended Diet: Low Fat, low cholesterol Activity Full Activity/No Limits: Yes Acute Coronary Syndrome Inclusion Criteria At DC or during hospital stay patient has or had the following: ACS DIAGNOSIS No Discharge Core Measures Meds if any: Prescribed or Continued at Discharge Meds if any: NOT Prescribed or Continued at Discharge Congestive Heart Failure Inclusion Criteria At DC or during hospital stay patient has or had the following: CHF DIAGNOSIS No Discharge Core Measures Meds if any: Prescribed or Continued at Discharge Meds if any: NOT Prescribed or Continued at Discharge Cerebrovascular accident Inclusion Criteria At DC or during hospital stay patient has or had the following: CVA/TIA Diagnosis No Discharge Core Measures Meds if any: Prescribed or Continued at Discharge Meds if any: NOT Prescribed or Continued at Discharge Venous thromboembolism Inclusion Criteria VTE Diagnosis No VTE Type NONE VTE Confirmed by (Test) NONE Discharge Core Measures - Per Current guidelines, there needs to be overlap - treatment for the first 5 days of Warfarin therapy. - If discharged on Warfarin prior to 5 days of - overlap therapy, the patient will need to be - assessed for post discharge needs including - *Post discharge parental anticoagulation - *Warfarin and/or parental anticoagulation education - *Follow up date to check INR post discharge At least 5 days overlap therapy as Inpatient No Meds if any: Prescribed or Continued at Discharge Note: Overlap Therapy is Warfarin and Anticoagulant Meds if any: NOT Prescribed or Continued at Discharge
[2018-04-22 08:00] LABS: ABSOLUTE BASOPHIL COUNT 0 /CUMM (0.0-0.2); ABSOLUTE EOSINOPHIL COUNT 0.2 /CUMM (0.0-0.7); ABSOLUTE GRANULOCYTE CT 3.4 /CUMM (1.4-6.5); ABSOLUTE LYMPH COUNT 1.9 /CUMM (1.2-3.4); ABSOLUTE MONOCYTE COUNT 0.6 /CUMM (0.10-0.60); BASOPHIL % 0.3 % (0.0-2.0); EOSINOPHIL % 2.8 % (0-5); GRANULOCYTE % 55.5 % (42.2-75.2); HEMATOCRIT 36.3 % (42-52); MEAN CORPUSCULAR HGB 30.8 PG (27.0-31.0); MEAN CORPUSCULAR HGB CONC 34.5 G/DL (33.0-37.0); MEAN CORPUSCULAR VOLUME 89.1 FL (80.0-94.0); MEAN PLATELET VOLUME 10.3 FL (7.4-10.4); PLATELET COUNT 145 /CUMM (130-400); RBC DISTRIBUTION WIDTH 13.2 % (11.5-14.5); RED BLOOD CELL CT 4.07 /CUMM (4.70-6.10); WHITE BLOOD CELL COUNT 6.1 /CUMM (4.8-10.8)
--- NOTE | 2018-04-22 08:14 | PN- Endocrinology ---
Assessment/Plan Endoscopy Assessment: The patient states the abdominal pain is a little less today. However it still hurts when he takes a deep breath. His labs are pending from this morning. The patient's IV fluids were stopped this morning. A decision needs to be made with regard to either placing him back on IV fluids or beginning a clear liquid diet. We measured the patient's fasting insulin level and fasting blood sugar this morning to see if there is evidence of insulin resistance. Plan: We will await this morning's labs. In addition to a fibrate and Vascepa, the patient should also be placed on a statin. One of the most important measures however is for him to stop drinking alcohol. I am not sure that he will cooperate and should probably have some counseling in this regard. Subjective Subjective: Still has abdominal pain Review of Systems Constitutional: Denies: chills, fever. Cardiovascular: Denies: chest pain. Gastrointestinal: Reports: abdominal pain. Denies: nausea, vomiting. Musculoskeletal: Denies: back pain. Objective Last 24 Hrs of Vital Signs/I&O Vital Signs Date Time Temp Pulse Resp B/P B/P Pulse O2 O2 Flow FiO2 Mean Ox Delivery Rate 04/22 641 98.5 63 20 110/64 93 Room Air 04/219 98.3 68 18 110/64 97 Room Air 04/21 1452 97.8 68 18 136/80 99 Room Air 04/21 0842 98.7 66 18 130/90 98 Intake & Output 04/22 1600 04/22 0800 04/22 0000 Intake Total 1200 600 Output Total 800 Balance 400 600 Intake, IV 1200 600 Intake, Oral 0 0 Output, Urine 800 Vital Signs Date Time Temp Pulse Resp B/P B/P Pulse O2 O2 Flow FiO2 Mean Ox Delivery Rate 04/22 0641 98.5 63 20 110/64 93 Room Air 04/219 98.3 68 18 110/64 97 Room Air 04/21 1452 97.8 68 18 136/80 99 Room Air 04/21 0842 98.7 66 18 130/90 98 Intake & Output 04/22 1600 04/22 0800 06 0000 Intake Total 1200 600 Output Total 800 Balance 400 600 Intake, IV 1200 600 Intake, Oral 0 0 Output, Urine 800 Physical Exam General Appearance: alert, awake, comfortable Head: normal appearance Neck: normal inspection Respiratory: normal breath sounds Cardiovascular: regular rate/rhythm Abdomen: normal bowel sounds, soft, tenderness (epigastrium) Skin: intact Current Medications: Current Medications Sig/Steph Start time Last Medication Dose Route Stop Time Status Admin Fenofibrate 145 MG DAILY 04/21 09 AC 04/22 PO 0811 Fish Oil 2,100 MG BID 04/21 09 AC 04/22 PO 0811 Heparin Sodium 5,000 UNIT Q8 04/21 1400 AC 04/22 (Porcine) SC 0520 Hydromorphone HCl 0.5 MG Q4P PRN 04/21 0845 AC 04/22 IV 0810 Lactated Ringer's 1,000 ML Q6H 04/21 0900 DC 04/21 IV 04/22 0259 2233 Melatonin 5 MG AT BEDTIME 04/21 2230 AC 04/21 PO 2233 Ondansetron HCl 4 MG Q8P PRN 04/21 0845 IV Patient Medication 1 ED ONE ONE 04/21 1100 DC Teaching ED 04/21 1101
[2018-04-22 14:27] VITALS: BP 120/78
[2018-04-22 22:20] VITALS: BP 138/80
[2018-04-23 06:40] VITALS: BP 116/80
--- NOTE | 2018-04-23 07:17 | Discharge Summary ---
Visit Information Visit Dates Admission Date: 04/21/18 Discharge Date: 04/23/18 Hospital Course Course Attending Physician: Kiersten Giraldo MD Primary Care Physician: Guido Scott MD Hospital Course: Mr Xavier is a 47 year old man with past medical history of recurrent pancreatitis, famililial hypertriglyceridema, and obesity seen for evaluation of epigastric pain. He was seen and treated for: Acute Pancreatitis: Patient presented with complains of severe abdominal pain. Labs on admission showed severe hypertriglyceridemia and imaging was consistent with pancreatitis. He was admitted to general medicine floor for further management. He was initially made NPO and started on hydration with IV Lactated Ringer's. As his condition improved, his diet was slowly restarted beginning with clear liquid and advanced as tolerated. IVF was discontinued. Atorvastatin was added to his medication regimen. The patient was counselled extensively on the importance of alcohol abstinence as its use could lead to increased risk of future episodes of pancreatitis. The patient at this time refuses Niacin to be added to his regimen. Nutrition was consulted for dietary counseling. He was discharged in stable disposition. Allergies: Coded Allergies: niacin (Intermediate, FLUSHING 04/22/18) Significant Procedures: SERVICE DATE: 04/21/18-050 EXAM TYPE: CAT - CT ABD & PELVIS W/O IV CONTRAST FINDINGS: LUNG BASES: The visualized lung bases are unremarkable. LIVER, GALLBLADDER, AND BILIARY TREE: The liver is normal in size, shape, and attenuation. No biliary ductal dilatation is present. The gallbladder is unremarkable with no evidence of radiopaque gallstones, gallbladder wall thickening, or obvious pericholecystic inflammatory changes. PANCREAS: There is mild stranding adjacent to the distal pancreas. No peripancreatic fluid collection. SPLEEN: Unremarkable. ADRENAL GLANDS: Unremarkable. KIDNEYS AND URETERS: The kidneys are normal in size, shape, and attenuation. No hydronephrosis, hydroureter, or calculi seen. No perinephric stranding. BLADDER: Unremarkable. GASTROINTESTINAL TRACT: No evidence of bowel obstruction or wall thickening. Patient is status post appendectomy. No free fluid or free air is seen. ABDOMINAL WALL: No significant hernia is appreciated. LYMPH NODES: Normal. VASCULAR: Unremarkable. PELVIC VISCERA: Unremarkable. OSSEOUS STRUCTURES: Diffuse idiopathic skeletal hyperostosis is noted in the lower thoracic spine. Endplate osteophytes are present in the lumbar spine most prominently at L3-L4. IMPRESSION: Mild stranding adjacent to the distal pancreas, consistent with pancreatitis. SERVICE DATE: 04/21/18- EXAM TYPE: RAD - XRY-PORTABLE CHEST XRAY FINDINGS: The lung hamilton are well expanded and appear clear bilaterally. The cardiac silhouette is normal. There are no pleural effusions or pneumothorax. The central pulmonary vasculature is normal. The hilar regions appear normal. There are no acute osseous findings. IMPRESSION: 1. There are no acute cardiopulmonary findings. Disposition Summary Disposition Principal Diagnosis: Acute Pancreatitis Additional Diagnosis: recurrent pancreatitis famililial hypertriglyceridema Obesity Discharge Disposition: home or self care Discharge Instructions General Discharge Information Code Status: Full Code Patient's Diet: Regular - Low Fat, low cholesterol Patient's Activity: As tolerated Follow-Up Instructions/Appts: Please follow up with your PCP within one week of discharge. Please refrain from smoking and drinking alcohol. Medications at Discharge Discharge Medications: Continue taking these medications: Icosapent Ethyl (Vascepa) 1 GM CAPSULE 2 Capsule ORAL TWICE DAILY Qty = 120 Comments: NOT GIVEN IN HOSPITAL Fenofibrate Nanocrystallized (Tricor) 145 MG TABLET 1 Tablet ORAL DAILY Qty = 30 This prescription has been renewed Start taking the following new medications: Atorvastatin Calcium (Atorvastatin Calcium) 20 MG TABLET 1 Tablet ORAL DAILY Qty = 30 No Refills Comments: Last Taken: 04/22/18 Time: 6:00 PM Copies To: Guido Scott MD Copies To: Guido Scott MD
--- NOTE | 2018-04-23 07:17 | PN- Housestaff ---
See Addendum Subjective Follow-up For: pancreatitis Subjective: Patient seen and examined. Reports feeling well. Inquires if he his diet can be advanced and if he can go home today. Does not wish to continue on the Niacin as he tends to feel a burning sensation with it. Review of Systems Constitutional: Reports: no symptoms. Objective Last 24 Hrs of Vital Signs/I&O Vital Signs Date Time Temp Pulse Resp B/P B/P Pulse O2 O2 Flow FiO2 Mean Ox Delivery Rate 04/23 0640 98.5 67 20 116/80 97 Room Air 04/22 2220 98.7 75 18 138/80 95 Room Air 04/22 1427 97.9 72 20 120/78 97 Room Air Intake & Output 04/23 1600 04/23 0800 06 0000 Intake Total 480 480 Output Total 400 Balance 80 480 Intake, Oral 480 480 Output, Urine 400 Patient 228 lb Weight Physical Exam General Appearance: Alert, Oriented X3, Cooperative, No Acute Distress Skin: No Rashes, No Breakdown Skin Temp/Moisture Exam: Warm/Dry Sepsis Skin Exam (color): Normal for Ethnicity HEENT: Atraumatic Cardiovascular: Normal S1, Normal S2, No Murmurs Lungs: Clear to Auscultation, Normal Air Movement Abdomen: Soft, No Tenderness Neurological: Normal Speech Extremities: No Edema Last 24 Hrs of Lab/Vasiliy Results Last 24 Hrs of Labs/Mics: Laboratory Tests 04/23/18 0625: Triglycerides Pending, CBC w Diff NO MAN DIFF REQ, RBC 4.13 L, MCV 89.0, MCH 30.3, MCHC 34.1, RDW 13.1, MPV 10.6 H, Gran % 52.5, Lymphocytes % 34.8, Monocytes % 8.9, Eosinophils % 3.4, Basophils % 0.4, Absolute Granulocytes 2.6, Absolute Lymphocytes 1.7, Absolute Monocytes 0.4, Absolute Eosinophils 0.2, Absolute Basophils 0 Assessment/Plan Assessment: 47 year old man with past medical history of recurrent pancreatitis, famililial hypertriglyceridema, and obesity seen for evaluation of epigastric pain. Assessment: 1. Acute pancreatitis 2. History of Familial hyperglyceridemia 3. Obesity Plan: * Stable with resolution of abdominal pain. * His tryglycerides continue to trend down. * Continue Statin. he does not wish to continue Niacin. * Will advance to regular diet with low fat. If tolerates well can be discharged later during the day. * Counselled extensively on alcohol abstinence to reduce risk of future episodes. * Pain control with oxycodone as needed. * Diet: Regular * DVT Prophylaxis: SC Lovenox * Code: Full Code Problem List: 1. Pancreatitis, acute Pain Ratin Pain Location: none Pain Goal: Remain pain free Pain Plan: none Tomorrow's Labs & Rationales: none
[2018-04-23 07:27] LABS: ABSOLUTE BASOPHIL COUNT 0 /CUMM (0.0-0.2); ABSOLUTE EOSINOPHIL COUNT 0.2 /CUMM (0.0-0.7); ABSOLUTE GRANULOCYTE CT 2.6 /CUMM (1.4-6.5); ABSOLUTE LYMPH COUNT 1.7 /CUMM (1.2-3.4); ABSOLUTE MONOCYTE COUNT 0.4 /CUMM (0.10-0.60); BASOPHIL % 0.4 % (0.0-2.0); EOSINOPHIL % 3.4 % (0-5); GRANULOCYTE % 52.5 % (42.2-75.2); HEMATOCRIT 36.8 % (42-52); MEAN CORPUSCULAR HGB 30.3 PG (27.0-31.0); MEAN CORPUSCULAR HGB CONC 34.1 G/DL (33.0-37.0); MEAN PLATELET VOLUME 10.6 FL (7.4-10.4); PLATELET COUNT 147 /CUMM (130-400); RBC DISTRIBUTION WIDTH 13.1 % (11.5-14.5); RED BLOOD CELL CT 4.13 /CUMM (4.70-6.10); WHITE BLOOD CELL COUNT 4.9 /CUMM (4.8-10.8)
[2018-04-23] MEDS ORDERED: ATORVASTATIN CA20 M1 PO ×2 (08:04→13:54)
--- NOTE | 2018-04-23 08:14 | PN- Endocrinology ---
Assessment/Plan Endoscopy Assessment: The patient feels improved. He is tolerating the liquid diet well. Atorvastatin has been added to his regimen. He continues on a fibrate. He was tried on niacin 500 mg but got severe flushing. Plan: Suggest that if the patient goes home today he can go home on atorvastatin, fenofibrate, and Vascepa. Niacin can be held in reserve. If the patient does need niacin we would use time-released niacin (Niaspan) rather than plain niacin. We would also give 81 mg of aspirin 1 hour prior to the niacin. This reduces the flushing considerably. The patient needs to stop drinking alcohol. He has been made aware that alcohol raises triglyceride levels severely and this leads to pancreatitis. Subjective Subjective: Feels okay Review of Systems Constitutional: Denies: chills, fever. Cardiovascular: Denies: chest pain. Respiratory: Denies: cough, short of breath. Gastrointestinal: Denies: abdominal pain. Skin: Reports: no symptoms. Objective Last 24 Hrs of Vital Signs/I&O Vital Signs Date Time Temp Pulse Resp B/P B/P Pulse O2 O2 Flow FiO2 Mean Ox Delivery Rate 04/23 0640 98.5 67 20 116/80 97 Room Air 04/22 2220 98.7 75 18 138/80 95 Room Air 04/22 1427 97.9 72 20 120/78 97 Room Air Intake & Output 04/23 1600 04/23 0800 06/08 0000 Intake Total 480 480 Output Total 400 Balance 80 480 Intake, Oral 480 480 Output, Urine 400 Patient 228 lb Weight Vital Signs Date Time Temp Pulse Resp B/P B/P Pulse O2 O2 Flow FiO2 Mean Ox Delivery Rate 04/23 0640 98.5 67 20 116/80 97 Room Air 04/22 2220 98.7 75 18 138/80 95 Room Air / 1427 97.9 72 20 120/78 97 Room Air Intake & Output 04/23 1600 04/23 0800 06/08 0000 Intake Total 480 480 Output Total 400 Balance 80 480 Intake, Oral 480 480 Output, Urine 400 Patient 228 lb Weight Physical Exam General Appearance: alert, awake Neck: normal inspection Cardiovascular: regular rate/rhythm Abdomen: normal bowel sounds Extremities: normal inspection Current Medications: Current Medications Sig/Steph Start time Last Medication Dose Route Stop Time Status Admin Aspirin 81 MG ONCE ONE 04/22 1315 DC 04/22 PO 04/22 1316 1328 Atorvastatin Calcium 20 MG 1700 04/22 1700 AC 04/22 PO 1752 Bisacodyl 10 MG BID 04/22 1021 DC SC Enoxaparin Sodium 40 MG DAILY 04/22 09 AC 04/23 SC 0807 Fenofibrate 145 MG DAILY 04/21 09 AC 04/23 PO 0807 Fish Oil 2,100 MG BID 04/21 0900 AC 04/23 PO 0808 Heparin Sodium 5,000 UNIT Q8 04/21 1400 DC 04/22 (Porcine) SC 0520 Hydromorphone HCl 0.5 MG Q4P PRN 04/21 0845 AC 04/22 IV 0810 Lactated Ringer's 1,000 ML .Q10H 04/22 0830 DC 04/22 IV 04/22 1829 0824 Melatonin 5 MG AT BEDTIME 04/21 2230 AC 04/22 PO 2058 Nicotinic Acid 500 MG WITH MEALS 04/22 1200 AC 04/22 PO 1205 Ondansetron HCl 4 MG Q8P PRN 04/21 0845 AC IV Oxycodone HCl 5 MG Q6-PRN PRN 04/22 0830 AC PO Patient Medication 1 ED ONE ONE 04/22 1645 DC 04/22 Teaching ED 04/22 1646 1755 Vital Signs Date Time Temp Pulse Resp B/P B/P Pulse O2 O2 Flow FiO2 Mean Ox Delivery Rate 04/23 0640 98.5 67 20 116/80 97 Room Air 04/22 2220 98.7 75 18 138/80 95 Room Air / 1427 97.9 72 20 120/78 97 Room Air Intake & Output 04/23 1600 08 0800 06/08 0000 Intake Total 480 480 Output Total 400 Balance 80 480 Intake, Oral 480 480 Output, Urine 400 Patient 228 lb Weight Results Pertinent Lab/Vasiliy Results: Laboratory Tests 04/23 04/22 0625 0706 Chemistry Sodium (137 - 145 mmol/L) 141 Potassium (3.5 - 5.1 mmol/L) 4.4 Chloride (98 - 107 mmol/L) 103 Carbon Dioxide (22 - 30 mmol/L) 30 Anion Gap (5 - 16) 8 BUN (9 - 20 mg/dL) 13 Creatinine (0.7 - 1.2 mg/dL) 1.0 Estimated GFR (>60 ml/min) > 60 BUN/Creatinine Ratio (7 - 25 %) 13.0 Glucose (65 - 99 mg/dL) 70 Insulin Level (3.0 - 25.0 mIU/mL) 3.6 Magnesium (1.6 - 2.3 mg/dL) 1.8 Triglycerides (<150 mg/dL) Pending 714 H Cholesterol (< 200 MG/DL) 240 H LDL Cholesterol Direct (<100 mg/dL) 34.27 LDL Cholesterol, Calc (65 - 129 MG/DL) ND HDL Cholesterol (40 - 60 mg/dL) 24 L Cholesterol/HDL Ratio (0.00 - 4.88 %) 10 H Hematology CBC w Diff NO MAN DIFF REQ NO MAN DIFF REQ WBC (4.8 - 10.8 /CUMM) 4.9 6.1 RBC (4.70 - 6.10 /CUMM) 4.13 L 4.07 L Hgb (14.0 - 18.0 G/DL) 12.5 L 12.5 L Hct (42 - 52 %) 36.8 L 36.3 L MCV (80.0 - 94.0 FL) 89.0 89.1 MCH (27.0 - 31.0 PG) 30.3 30.8 MCHC (33.0 - 37.0 G/DL) 34.1 34.5 RDW (11.5 - 14.5 %) 13.1 13.2 Plt Count (130 - 400 /CUMM) 147 145 MPV (7.4 - 10.4 FL) 10.6 H 10.3 Gran % (42.2 - 75.2 %) 52.5 55.5 Lymphocytes % (20.5 - 51.1 %) 34.8 31.9 Monocytes % (1.7 - 9.3 %) 8.9 9.5 H Eosinophils % (0 - 5 %) 3.4 2.8 Basophils % (0.0 - 2.0 %) 0.4 0.3 Absolute Granulocytes (1.4 - 6.5 /CUMM) 2.6 3.4 Absolute Lymphocytes (1.2 - 3.4 /CUMM) 1.7 1.9 Absolute Monocytes (0.10 - 0.60 /CUMM) 0.4 0.6 Absolute Eosinophils (0.0 - 0.7 /CUMM) 0.2 0.2 Absolute Basophils (0.0 - 0.2 /CUMM) 0 0
[2018-04-23] MEDS ORDERED: TRICOR145 M1 PO ×2 (13:54)
== END 2018-04-23 14:00 | DRG 440 ==
LOC: ERH 04:32 → 2NB 07:13 → ERHI 07:13 → ENRESERV 07:23 → ENTRNSPT 07:50 → EDTRNSPTSTS 08:04 → EDTRNSPT 08:04 → CMPTRNSPT 08:13 → ERHI 08:32 → 2NB 08:41 → ENPENDDIS 04-23 13:29 → 2NB 04-23 14:00
PROVIDERS: Internal Medicine; Internal Medicine Interventional Cardiology; Pediatrics
DX: K85.90 Acute pancreatitis without necrosis or infection, unspecified (principal); E78.1 Pure hyperglyceridemia; Z72.89 Other problems related to lifestyle; E66.9 Obesity, unspecified; Z68.39 Body mass index [BMI] 39.0-39.9, adult
CPT/HCPCS: 2NBSP; 36592; 71045; 74176; 81003; 82436; 83525; 93005; 93010; 96374; 96375; G0480; J0131; J1644; J1650; J1885; J2405; J3490; J7120